=== PATIENT | female | born 1990 | race Caucasian/White ===

== ENCOUNTER 2017-05-02 18:53 | Emergency (ER) | payer OTHER ==
[~2017-05-02] VITALS: Ht 167.6 cm; Wt 140.9 kg
[2017-05-02 19:08] VITALS: BP 113/84; PULSE 114; RESP 16; O2SAT 96
[2017-05-02 19:47] LABS: BASOPHILS % (AUTO) 0.2 % (0-3); EOSINOPHILS % (AUTO) 1.6 % (0-5); Mean Corpuscular Hemoglobin 28.8 pg (27.0-35.0); NEUTROPHILS % (AUTO) 66.1 % (40-74); Platelet Count 447 bil/L (150-400)
--- NOTE | 2017-05-02 20:07 | ED.REPORT ---
HPI-General Illness Date of Service May 02, 2017 ED Provider: Javier Vazquez MD Pt is a healthy 26 y/o female presenting to the ED c/o dysuria onset 2 days ago. She has had UTIs previously and this is similar. Also, for 2 weeks, she has been experiencing constant non-radiating lower/suprapubic abdominal pain and intermittent diarrhea. Her pain is not exacerbated or relieved by anything. She denies abnormal vaginal discharge, nausea, vomiting, fever, chills. She has no history of STDs or PID. Her LMP was on March 20. Nursing Notes Stated Complaint: BLADDER & INTESTINE PAIN Chief Complaint: Female Abdominal Pain Nursing Notes Reviewed: Yes Allergies: Coded Allergies: Bumble Bee (Verified Allergy, Mild, 05/02/17) Scheduled PRN Phenazopyridine (Phenazopyridine) 100 Mg Tablet 100 MG PO TID PRN PRN For Pain General Time Seen by MD: 20:03 Chief Complaint Abdominal pain Hx Obtained From: Patient Arrived By: Walk-in Sudden in Onset?: No Onset Occurred: 2 days ago Symptom Duration: Since onset Location: : Abdomen Quality: Painful Severity: Current: Mild Severity: Maximum: Moderate Similar Sx Previous: No Past Medical History Past Medical History Healthy Hx UTIs Past Surgical History None reported Smoking History Unknown if Ever Smoker Ambulatory Status Independent Review of Systems Full Review of Systems Constitutional: Denies: Chills, Fever Respiratory: Denies: Non-productive cough, Shortness of breath Cardiovascular: Denies: Chest pain, Dyspnea on exertion GI: Reports: Abdominal pain, Diarrhea, Denies: Nausea, Vomiting Female: Reports: Dysuria Complete sys rev & neg: except as marked. Physical Exam Vital Signs Vital Signs Date Time Temp Pulse Resp B/P Pulse Ox O2 Delivery O2 Flow Rate FiO2 05/02/17 21:31 36.7 105 120/98 100 Room Air 05/02/17 19:08 37.1 114 16 113/84 96 Room Air Initial VS: Reviewed, Vital signs abnormal Head / Eyes: Atraumatic, Normocephalic, PERRL ENT: Mucous membranes moist, Conjunctiva normal, No scleral icterus Neck: Supple, Full range of motion Respiratory: Breath sounds normal, Clear to auscultation, No respiratory distress Cardiovascular: Regular rate & rhythm, Heart sounds normal, Intact distal pulses Extremities: Vascular intact, Neuro intact, No swelling Skin: Warm, Dry, No cyanosis Neurologic: Alert, Oriented, Nonfocal Psychiatric: Mood/affect normal, Behavior normal, Normal thought content General/Constitutional: Awake, Alert, No acute distress, Well appearing, Cooperative, Not toxic appearing Abdomen: Atraumatic, Soft, No guarding, No rebound, No distention, No palpable mass Diffuse tenderness about lower abdomen and suprapubic region Interpretation & Diagnostics Lab Results Interpretation Result Diagram: 05/02/17 [id number] Test 05/02/17 19:35 05/02/17 20:00 White Blood Count 14.3th/mm3 (3.8-10.1) Red Blood Count 4.93mil/mm3 (3.90-5.20) Hemoglobin 14.2g/dL (12.0-15.6) Hematocrit 42.9% (35.0-46.0) Mean Corpuscular Volume 87.0fL (81-100) Mean Corpuscular Hemoglobin 28.8pg (27.0-35.0) Mean Corpuscular Hemoglobin Concent 33.1% (32.0-37.0) Red Cell Distribution Width 13.7% (12.3-15.4) Platelet Count 447bil/L (150-400) Neutrophils (%) (Auto) 66.1% (40-74) Lymphocytes (%) (Auto) 24.9% (14-46) Monocytes (%) (Auto) 7.0% (4-12) Eosinophils (%) (Auto) 1.6% (0-5) Basophils (%) (Auto) 0.2% (0-3) Sodium Level 141mEq/L (134-144) Potassium Level 4.8mEq/L (3.5-5.2) Chloride Level 104mEq/L (97-108) Carbon Dioxide Level 26mmol/L (18-29) Blood Urea Nitrogen 10mg/dL (6-20) Creatinine 0.66mg/dL (0.57-1.00) Estimat Glomerular Filtration Rate 156mL/min (>59) Glucose Level 103mg/dL (60-99) Calcium Level 9.2mg/dL (8.5-10.1) Magnesium Level 1.7mg/dL (1.6-2.6) Total Bilirubin 0.3mg/dL (0.0-1.2) Aspartate Amino Transf (AST/SGOT) 15U/L (0-50) Alanine Aminotransferase (ALT/SGPT) 14U/L (0-32) Alkaline Phosphatase 93U/L (25-150) Total Protein 6.7g/dL (6.4-8.4) Albumin 3.5g/dL (3.4-5.0) Lipase 21U/L (13-60) Human Chorionic Gonadotropin, Qual Negative (Negative) Hold Figueroa Top Tube Received (Received) Urine Color Yellow (YELLOW) Urine Appearance Clear (CLEAR,HAZY) Urine pH 5.5 (5.0-8.0) Urine Specific [place] >1.030 (1.003-1.035) Urine Protein Tracemg/dL (NEG,TRACE) Urine Glucose (UA) Negativemg/dL (NEGATIVE) Urine Ketones Negativemg/dL (NEGATIVE) Urine Occult Blood Negative (NEGATIVE) Urine Nitrite Negative (NEGATIVE) Urine Bilirubin Negative (NEGATIVE) Urine Urobilinogen Normalmg/dL (NORMAL) Urine Leukocyte Esterase Negative (NEGATIVE) Urine RBC 0-2/hpf (0-2) Urine WBC 0-5/hpf (0-5) Urine Epithelial Cells Few/hpf (NONE-MOD) Urine Crystals None seen (NONE SEEN) Urine Bacteria Few/hpf (NONE-FEW) Urine Hyaline Casts None/lpf (NONE) Urine Granular Casts None seen (NONE SEEN) Urine Waxy Casts None seen (NONE SEEN) Urine Red Blood Cell Casts None seen (NONE SEEN) Urine White Blood Cell Casts None seen (NONE SEEN) Urine Mucus Present (None Seen) Urine Trichomonas None seen (NONE SEEN) Urine Yeast None (NONE SEEN) Urinalysis Comment None Urine Culture Reflexed Not indicated Hold Urine Received (Received) CT Abd / Pelvis Interpretation IMPRESSION: 1. No abnormalities found on the CT scan. Cause of abdominal pain is not identified. Dictated by: Ottoniel Ordonez M.D. on 05/02/2017 at 22:07 Approved by: Ottoniel Ordonez M.D. on 05/02/2017 at 22:10 Study type: Abdominal CT IV contrast Interpretation / Wet Read by: Interpret - Radiologist Re-Eval/Medical Decision Med Decision/Clinical Course Pt is a healthy 26 y/o female presenting to the ED c/o dysuria onset 2 days ago. She has had UTIs previously and this is similar. Also, for 2 weeks, she has been experiencing constant non-radiating lower/suprapubic abdominal pain and intermittent diarrhea. Her pain is not exacerbated or relieved by anything. She denies abnormal vaginal discharge, nausea, vomiting, fever, chills. She has no history of STDs or PID. Her LMP was on March 20. Here in the emergency department the patient is afebrile stable vital signs examination as above. The patient was treated with Zofran, IV fluids and potassium. 18. She reported significant subjective improvement. Labs notable as below: Leukocytosis of 14.3, platelets of 447 CMP: Unremarkable Urine dip: preg neg UA: negative nitrites, negative leukocyte esterase, few bacteria, no sig RBCs or WBCs, not convincing for UTI Given absence of UTI and presence of leukocytosis in the setting of mild abdominal pain I opted to obtain a CT scan to definitively rule out any acute surgical intra-abdominal process. CT scan was obtained as below: "No abnormalities found on the CT scan. Cause of abdominal pain is not identified." At this time, overall constellation of symptoms most consistent with cystitis. No abnormal vaginal discharge or history of sexually transmitted infections. Suspicion for STI or pelvic inflammatory disease is very low. Patient responded well to phenazopyridine. She has been prescribed a course of this medication. She is advised to return right away for any worsening symptoms, fevers, chills, abdominal pain or other concerning. She will follow closely with her primary care physician. Prior to discharge follow-up and return precautions were reviewed in detail with the patient who verbalized understanding and agreement with the plan. The patient was discharged in stable condition. Time of Eval: 22:34 Re-Evaluation/Progress Note: Pt rechecked. Informed pt of plan for treatment. Pt understands and agrees with plan for treatment. F/U instructions and RTER warnings given. All questions addressed. Counseled Regarding: Diagnosis, Lab results, Need for follow-up, When/why to return to ED Discharge & Departure Primary Impression: Lower abdominal pain Additional Impressions: Cystitis Dysuria Leukocytosis Leukocytosis type: unspecified Qualified Code: D72.829 - Elevated white blood cell count, unspecified Thrombocytosis Disposition: Home Discharge Condition All VS Reviewed: Yes Condition: Stable Patient Instructions: Acute Abdominal Pain (ED) Additional Instructions: Thank you for seeking care at the emergency room. The cause of your pain is unclear at this moment but is not dangerous. Our primary goal today in the ED was to evaluate you for any life-threatening conditions. Your evaluation was reassuring. CT and labs were reassuring. There was no sign of UTI. You will be discharged with a prescription for Phenazopyridine to help with your urinary symptoms. You should follow-up with your primary doctor in the next week. You should return to the ED immediately if you develop fevers, worsening pain, vomiting, chest pain, lightheadedness, weakness or any other concerning signs or symptoms. Thank you for letting us partake in your care today. Referrals: [facility] Scribe Attestation Portions of this note were transcribed by Don Byrd. I, Dr. Vazquez, personally performed the history, physical exam and medical decision-making; I reviewed and confirmed the accuracy of the information in the transcribed note. Signed by Neftaly Tracy, 05/02/17 - 0783 Javier Vazquez MD May 02, 2017 20:06 DON BYRD May 02, 2017 20:44
[2017-05-02] MEDS ORDERED: Ondansetron 2 mg/mL 2 mL Inj IVPUSH PRN (20:10)
[2017-05-02 20:13] LABS: Magnesium 1.7 mg/dL (1.6-2.6)
[2017-05-02] MEDS: 0.9% Sodium Chloride 1,000 ML IV ONE ×2 (20:18→21:55)
[2017-05-02 20:33] LABS: APPEARANCE,URINE CLEAR (CLEAR,HAZY); COLOR,URINE YELLOW (YELLOW); OCCULT BLOOD,URINE NEGATIVE (NEGATIVE); PH,URINE 5.5 (5.0-8.0); UROBILINOGEN,URINE NORMAL (NORMAL)
[2017-05-02 21:31] VITALS: BP 120/98; PULSE 105; O2SAT 100
--- NOTE | 2017-05-02 22:12 | DRSVH ---
PROCEDURE: CT ABDOMEN AND PELVIS WITH CONTRAST ([id number]) INDICATIONS: low abd pain TECHNIQUE: After the administration of intravenous contrast, 5 mm thick sections acquired from the diaphragm to the symphysis. 5 mm coronal and sagittal reformats were acquired. For radiation dose reduction, the following was used: automated exposure control, adjustment of mA and/or kV according to patient siz e. COMPARISON: None. FINDINGS: Image quality: Excellent. ABDOMEN: Lung bases: Lung bases are clear. Heart size is normal. Solid organs: Liver and spleen are normal in size and enhancement. Gallbladder is within normal finn its. Biliary system is non dilated. Pancreas enhances normally. No adrenal nodules. Kidneys demon strate normal size and enhancement, without hydronephrosis. Peritoneum and bowel: Bowel loops demonstrate normal wall thickness and caliber. No free fluid or a ir. There is a normal appendix. Nodes and vessels: No retroperitoneal or mesenteric adenopathy by size criteria. Aorta and inferior vena cava are normal in size. Miscellaneous: No ventral hernias. PELVIS: Genitourinary: Bladder wall thickness is normal. Uterus and ovaries are considered grossly normal. A CT scan cannot differentiate the possibility of a 2-1/2 cm cyst. However this is still at the upper limits of normal for developing follicles. Miscellaneous: No inguinal hernias or adenopathy. Bones: No suspicious bony lesions. No vertebral body compression fractures. IMPRESSION: 1. No abnormalities found on the CT scan. Cause of abdominal pain is not identified. Dictated by: Ottoniel Ordonez M.D. on 05/02/2017 at 22:07 Approved by: Ottoniel Ordonez M.D. on 05/02/2017 at 22:10
[2017-05-02] MEDS ORDERED: PHEN-773 PO (22:18)
[2017-05-02] MEDS ORDERED: Phenazopyridine 97.5 mg Tablet PO ONE (22:20)
== END 2017-05-02 22:52 | disposition home or self-care (01) ==
LOC: SED 18:53
DX: N30.90 Cystitis, unspecified without hematuria (principal); D72.829 Elevated white blood cell count, unspecified; D47.3 Essential (hemorrhagic) thrombocythemia; Z87.440 Personal history of urinary (tract) infections
CPT/HCPCS: 36415; 74177; 80053; 81000; 81025; 83690; 83735; 84703; 85025; 96360; 99285; J7030; Q9967

== ENCOUNTER 2017-05-17 20:15 | Emergency (ER) | payer OTHER ==
[~2017-05-17] VITALS: Ht 167.6 cm; Wt 150.0 kg
[~2017-05-17 20:15] MED LIST: PHEN-773 PO
[2017-05-17 20:24] VITALS: BP 124/87; PULSE 96; RESP 18; O2SAT 100
--- NOTE | 2017-05-17 21:39 | ED.REPORT ---
HPI-General Illness Date of Service May 17, 2017 ED Provider: Gabo Faust MD The pt is a 26 y/o female presenting to the ED due to a ground level fall. She reports falling and twisting her R knee and ankle which is making it difficult for her to walk. She describes the pain as aching and a 9/10 when she walks. No loss of consciousness, no neck pain, no back pain. No other complaints at this time. Nursing Notes Stated Complaint: HURT KNEE/ANKLE Chief Complaint: Extremity Trauma Nursing Notes Reviewed: Yes Allergies: Coded Allergies: Bumble Bee (Verified Allergy, Mild, 05/17/17) Scheduled PRN Phenazopyridine (Phenazopyridine) 100 Mg Tablet 100 MG PO TID PRN PRN For Pain General Time Seen by MD: 21:38 Chief Complaint Other (RLE pain ) Hx Obtained From: Patient Arrived By: Walk-in Sudden in Onset?: Yes Onset Occurred: Just prior to arrival Symptom Duration: Since onset Caused by: Fall on ground Location: : Leg right Quality: Aching Severity: Maximum: Pain level 9 out of 10 Pertinent Negative: Pt denies other symptoms Recent Healthcare: No recent hospitalization, Recent doctor visit Similar Sx Previous: No Past Medical History Past Medical History Healthy Hx UTIs Past Surgical History None reported Smoking History Current Every Day Smoker Social History Drug Use: Denies drug use Other Social History: Good social support Ambulatory Status Independent Review of Systems Full Review of Systems Musculoskeletal: Reports: Joint pain (R ankle and knee ) Complete sys rev & neg: except as marked. Physical Exam General: Well appearing. No obvious external signs of trauma to the scalp appreciated Neck: nontender, trachea midline, Lungs: Normal work of breathing Cardiac: Regular rate and rhythm Abdomen: Normal, non-tender, non-distended. Skin: Warm and well perfused Extremities: Left upper extremity grossly normal, no deformity. Right upper extremity grossly normal, no deformity. Left lower extremity grossly normal, no deformity. R knee joint is stable. No laxity in R knee. Some abrasions to the anterior R knee. Pulses: Palpable to bilateral upper and lower extremities Neuro: Motor and sensory exams grossly within normal limits; patient localizes to pain. Vital Signs Vital Signs Date Time Temp Pulse Resp B/P Pulse Ox O2 Delivery O2 Flow Rate FiO2 05/17/17 23:29 88 20 135/93 97 Room Air 05/17/17 20:24 37.1 96 18 124/87 100 Room Air Initial VS: Reviewed Interpretation & Diagnostics X-Ray Interpretation Xray Interpretation: IMPRESSION: No trauma found. Dictated by: Adelfo Rowell M.D. on 05/17/2017 at 21:54 Approved by: Adelfo Rowell M.D. on 05/17/2017 at 21:55 X-Ray Ordered: Ankle right Interpretation / Wet Read by: Interpret - Radiologist Xray Interpretation: IMPRESSION: No trauma found. Dictated by: Adelfo Rowell M.D. on 05/17/2017 at 21:54 Approved by: Adelfo Rowell M.D. on 05/17/2017 at 21:55 X-Ray Ordered: Knee right Interpretation / Wet Read by: Interpret - Radiologist Re-Eval/Medical Decision Med Decision/Clinical Course 26-year-old female presenting to the ED for evaluation of pain to her right knee and right ankle after twisting and falling earlier today. No joint laxity , reassuring exam. X-rays negative. Plan discharge home with careful return precautions, PCP follow-up. Source of Hx: Old records Time of Eval: 23:46 Re-Evaluation/Progress Note: Pt rechecked. Informed pt of plan for treatment. Pt understands and agrees with plan for treatment. F/U instructions and RTER warnings given. All questions addressed. Counseled Regarding: Diagnosis, Lab results, Need for follow-up, When/why to return to ED Discharge & Departure Primary Impression: Right ankle injury Encounter type: initial encounter Qualified Code: S99.911A - Unspecified injury of right ankle, initial encounter Additional Impression: Knee injury Encounter type: initial encounter Laterality: right Qualified Code: S89.91XA - Unspecified injury of right lower leg, initial encounter Disposition: Home Discharge Condition All VS Reviewed: Yes Condition: Stable Additional Instructions: You have been seen in the emergency department for evaluation of pain to your ankle and knee. At this time, there does not appear to be a fracture or other acute injury that would require further intervention right now. Please review attached instructions. Follow-up with her regular doctor in the next several days. Return to the emergency department immediately if you develop any worsening pain, swelling, decreased sensation or strength, or if there is anything else of concern to you. Thank you for the opportunity to be a part of your care. Referrals: Colette Villa (PCP) Scribe Attestation Portions of this note were transcribed by Bill Botello. I, Dr. Faust personally performed the history, physical exam and medical decision- making; I reviewed and confirmed the accuracy of the information in the transcribed note. Signed by: Neftaly Barba, 05/17/17 and 3075. copies to: Colette Villa William B MD May 17, 2017 21:39 Bill Botello May 17, 2017 23:47 Gabo Faust MD May 17, 2017 21:39 Bill Botello May 17, 2017 23:47
--- NOTE | 2017-05-17 21:56 | DRSVH ---
CORRECTED CC PROVIDER ON 05/27/17 PROCEDURE: X-RAY RIGHT ANKLE, MINIMUM THREE VIEWS ([id number]) INDICATIONS: injury TECHNIQUE: 3 views of the ankle were acquired. COMPARISON: None. FINDINGS: Bones: No fractures or dislocations. Ankle mortise is normally aligned. No suspicious bony lesions . Soft tissues: No tibiotalar joint effusion. Achilles tendon appears normal. IMPRESSION: No trauma found. Dictated by: Adelfo Rowell M.D. on 05/17/2017 at 21:54 Approved by: Adelfo Rowell M.D. on 05/17/2017 at 21:55
--- NOTE | 2017-05-17 21:57 | DRSVH ---
CORRECTED CC PROVIDER ON 05/27/17 PROCEDURE: X-RAY RIGHT KNEE, THREE VIEWS ([id number]) INDICATIONS: injury TECHNIQUE: 3 views of the knee were acquired. COMPARISON: None. FINDINGS: Bones: No fractures or dislocations. No suspicious bony lesions. Soft tissues: No joint effusion. No suspicious soft tissue calcifications. IMPRESSION: No trauma found. Dictated by: Adelfo Rowell M.D. on 05/17/2017 at 21:55 Approved by: Adelfo Rowell M.D. on 05/17/2017 at 21:55
[2017-05-17 23:29] VITALS: BP 135/93; PULSE 88; RESP 20; O2SAT 97
== END 2017-05-17 23:29 | disposition home or self-care (01) ==
LOC: SED 20:15
DX: S99.811A Other specified injuries of right ankle, initial encounter (principal); S89.81XA Other specified injuries of right lower leg, initial encounter; W18.39XA Other fall on same level, initial encounter; Y93.89 Activity, other specified; Y92.89 Other specified places as the place of occurrence of the external cause; Y99.8 Other external cause status; F17.200 Nicotine dependence, unspecified, uncomplicated; Z87.440 Personal history of urinary (tract) infections; Z91.030 Bee allergy status